=== PATIENT | female | born 1940 | race Caucasian/White ===

== ENCOUNTER 2021-02-04 06:47 | Day surgery (SDC) | payer MEDICARE ==
[~2021-02-04] VITALS: Ht 167.6 cm; Wt 53.2 kg
[~2021-02-04 06:47] MED LIST: ACYC-113 PO; ALPR0.25 PO; FLUO20CA19 PO; MONT10TA6 PO; MONT4TAB5 PO; SERT25TA PO; Sinex PO
[2021-02-04] MEDS ORDERED: CHLORHEXIDINE 15 ML UDC PO ONE (07:30)
[2021-02-04] MEDS ORDERED: LACTATED RINGERS 1,000 ML IV SCH (07:30)
[2021-02-04 07:52] VITALS: BP 114/77
[2021-02-04] MEDS ORDERED: FENTANYL PF 100 MCG/2ML ONE (08:04)
[2021-02-04] MEDS ORDERED: MIDAZOLAM 1 MG/ML, 2ML ONE (08:04)
[2021-02-04] MEDS ORDERED: SUCCINYLCHOLINE 20 MG/ML, 10ML ONE (08:05)
[2021-02-04] MEDS ORDERED: PROPOFOL 10 MG/ML, 20ML ONE (08:05)
[2021-02-04] MEDS ORDERED: ROCURONIUM 10MG/ML,5ML ONE (08:05)
[2021-02-04] MEDS ORDERED: ONDANSETRON 2MG/ML, 2ML ONE (08:05)
[2021-02-04] MEDS ORDERED: EPINEPHRINE 1 MG/ML, 1ML ONE (08:49)
[2021-02-04] MEDS ORDERED: BUPIVACAINE/PF 0.5% ONE (08:49)
[2021-02-04] MEDS ORDERED: CEFAZOLIN 1,000 MG ONE (08:57)
[2021-02-04] MEDS ORDERED: SUGAMMADEX 200 MG/2 ML IVPush ONE (08:57)
[2021-02-04] MEDS ORDERED: OXYcodone 5 MG/5 ML ORAL.SOL UDC PO PRN (09:30)
[2021-02-04] MEDS ORDERED: ONDANSETRON 2MG/ML, 2ML IVPush PRN (09:30)
[2021-02-04] MEDS ORDERED: FENTANYL PF 100 MCG/2ML IV PRN (09:30)
[2021-02-04] MEDS ORDERED: ACETAMINOPHEN 325 MG TABLET PO PRN (09:30)
[2021-02-04] MEDS ORDERED: HYDROmorphone 1 MG/ML, 1ML INJ IVPush PRN (09:30)
[2021-02-04] MEDS ORDERED: DIAZEPAM 5 MG/ML, 2ML IVPush PRN (09:30)
[2021-02-04] MEDS ORDERED: OXYC5TAB2 PO (09:45)
== END 2021-02-04 11:10 | disposition home or self-care (01) ==
LOC: OUT 06:47
PROVIDERS: ATTEND Surgery
DX: K64.1 Second degree hemorrhoids (principal); K62.0 Anal polyp; K64.4 Residual hemorrhoidal skin tags; G47.00 Insomnia, unspecified; F32.9 Major depressive disorder, single episode, unspecified; K21.9 Gastro-esophageal reflux disease without esophagitis; E78.5 Hyperlipidemia, unspecified; Z90.49 Acquired absence of other specified parts of digestive tract; Z98.890 Other specified postprocedural states; Z79.899 Other long term (current) drug therapy; Z20.822 Contact with and (suspected) exposure to COVID-19; Z72.89 Other problems related to lifestyle; Z87.891 Personal history of nicotine dependence
CPT/HCPCS: 46922; 46945; 88304; 93005; J0171; J0330; J0690; J2250; J2405; J2704; J3010; J7120; U0003